=== PATIENT | male | born 1940 | race Caucasian/White ===

== ENCOUNTER 2021-06-11 20:34 | Emergency (ER) | payer MEDICARE ==
[~2021-06-11] VITALS: Ht 180.3 cm; Wt 126.5 kg
[2021-06-11 20:39] VITALS: BP 160/80
[2021-06-11 21:27] LABS: BASOPHILS % (AUTO) 1 % (0-1); EOSINOPHILS % (AUTO) 4 % (1-7); LYMPHOCYTES % (AUTO) 16 % (22-44); MEAN CORPUSCULAR HEMOGLOBIN 34.2 pg (27.5-34.5); MEAN CORPUSCULAR HGB CONC 33.5 g/dL (33.2-36.2); MEAN PLATELET VOLUME 9.4 fL (7.4-10.4); MONOCYTES % (AUTO) 13 % (2-9); NEUTROPHILS % (AUTO) 67 % (42-75); PLATELET COUNT 198 x10^3/uL (130-400); RED BLOOD COUNT 4.05 x10^6/uL (4.38-5.82); RED CELL DISTRIBUTION WIDTH 14.9 % (9.4-14.8)
[2021-06-11 21:35] LABS: ALANINE AMINOTRANSFERASE 23 U/L (12-78); ALBUMIN 3.2 g/dL (3.4-5.0); ANION GAP 5 mmol/L (5-15); CALCIUM 8.6 mg/dL (8.5-10.1); CHLORIDE 112 mmol/L (98-107); CREATININE 1.42 mg/dL (0.7-1.3)
[2021-06-11 21:37] LABS: ALKALINE PHOSPHATASE 128 U/L (45-117); BILIRUBIN,TOTAL 0.4 mg/dL (0.2-1.0)
[2021-06-11] MEDS ORDERED: SULFAMETH./TRIMETHOPRIM DS 800MG/160MG TABLET ONE (23:21)
[2021-06-11] MEDS ORDERED: CEPHALEXIN 500 MG CAPSULE ONE (23:21)
[2021-06-11] MEDS ORDERED: CEPHALEXIN 500 MG CAPSULE PO ONE (23:30)
[2021-06-11] MEDS ORDERED: SULFAMETH./TRIMETHOPRIM DS 800MG/160MG TABLET PO ONE (23:30)
--- NOTE | 2021-06-11 23:31 | NUR ---
THIS IS AN 81M COMES IN FOR R LOWER LEG SWELLING AND PAIN. PT STS IT HAS BEEN WORSENING X4 DAYS DENIES CUTS/ ABRASIONS
--- NOTE | 2021-06-12 | NUR ---
PT IN US AT THIS TIME
--- NOTE | 2021-06-12 00:30 | NUR ---
ALL RESULTS BACK AT THIS TIME, CHART UP FOR RECHECK AWAITING ADDITIONAL ORDERS
--- NOTE | 2021-06-12 00:43 | NUR ---
PT UP TO RESTROOM W/STEADY GAIT
--- NOTE | 2021-06-12 00:58 | NUR ---
REPORT RECEIVED FROM LUIS ALFREDO NICHOLS
--- NOTE | 2021-06-12 01:19 | NUR ---
Patient given discharge instructions and they have confirmed that they understand the instructions. Patient ambulatory with steady gait. NAD, all questions answered appropriately, denies additional needs at this time. No personal belongings left in room after discharge.
== END 2021-06-12 01:21 | disposition home or self-care (01) ==
LOC: ED 20:44
DX: L03.115 Cellulitis of right lower limb (principal)
CPT/HCPCS: 36415; 80053; 85025; 99284

== ENCOUNTER 2021-06-16 13:59 | Outpatient (CLI) | payer MEDICARE | END 2021-06-16 23:59 | disposition home or self-care (01) | LOC: WOUND 13:59 | PROVIDERS: ATTEND Podiatrist Foot & Ankle Surgery | DX: I87.331 Chronic venous hypertension (idiopathic) with ulcer and inflammation of right lower extremity (principal); L97.812 Non-pressure chronic ulcer of other part of right lower leg with fat layer exposed; L97.212 Non-pressure chronic ulcer of right calf with fat layer exposed; Z87.891 Personal history of nicotine dependence; Z85.46 Personal history of malignant neoplasm of prostate | CPT/HCPCS: 97597 ==

== ENCOUNTER 2021-06-23 13:47 | Outpatient (CLI) | payer MEDICARE | END 2021-06-23 23:59 | disposition home or self-care (01) | LOC: WOUND 13:47 | PROVIDERS: ATTEND Podiatrist Foot & Ankle Surgery | DX: I87.331 Chronic venous hypertension (idiopathic) with ulcer and inflammation of right lower extremity (principal); L97.812 Non-pressure chronic ulcer of other part of right lower leg with fat layer exposed; L97.212 Non-pressure chronic ulcer of right calf with fat layer exposed; Z87.891 Personal history of nicotine dependence; Z85.46 Personal history of malignant neoplasm of prostate | CPT/HCPCS: G0463 ==

== ENCOUNTER 2021-06-30 10:21 | Outpatient (CLI) | payer MEDICARE | END 2021-06-30 23:59 | disposition home or self-care (01) | LOC: WOUND 10:21 | PROVIDERS: ATTEND Podiatrist Foot & Ankle Surgery | DX: I87.331 Chronic venous hypertension (idiopathic) with ulcer and inflammation of right lower extremity (principal); L97.818 Non-pressure chronic ulcer of other part of right lower leg with other specified severity; L97.212 Non-pressure chronic ulcer of right calf with fat layer exposed; Z87.891 Personal history of nicotine dependence; Z85.46 Personal history of malignant neoplasm of prostate | CPT/HCPCS: G0463 ==